=== PATIENT | female | born 1980 | race Caucasian/White ===

== ENCOUNTER → 2017-08-10 | Outpatient (CLI) | payer BC ==
[2017-08-10 17:01] LABS: Basophils # (A) 0.1 k/uL (0-0.2); Basophils % (A) 1 %; Eosinophils # (A) 0.3 k/uL (0-0.7); Eosinophils % (A) 4 %; HGB 13.4 gm/dL (11.4-16.0); Lymphocytes % (A) 37 %; MCH 32.5 pg (25.0-35.0); MCHC 32.8 g/dL (31.0-37.0); Mean Platelet Volume 7.2; Monocytes # (A) 0.3 k/uL (0-1.0); Monocytes % (A) 4 %; Neutrophils # (A) 4.2 k/uL (1.3-7.7); Neutrophils % (A) 53 %; Platelet Count 307 k/uL (150-450); RBC 4.14 m/uL (3.80-5.40); RDW 13.7 % (11.5-15.5)
== END | disposition home or self-care (01) ==
LOC: LABPAT 16:22
PROVIDERS: ATTEND Obstetrics & Gynecology Obstetrics
DX: Z01.810 Encounter for preprocedural cardiovascular examination (principal); I10 Essential (primary) hypertension; N92.0 Excessive and frequent menstruation with regular cycle; Z64.0 Problems related to unwanted pregnancy; Z01.812 Encounter for preprocedural laboratory examination
CPT/HCPCS: 36415; 85025; 93005

== ENCOUNTER 2017-08-29 08:56 | Day surgery (SDC) | payer BC ==
[2017-08-23 13:30] VITALS: BMI 28.2
--- NOTE | 2017-08-24 11:35 | P.HPOB ---
History of Present Illness H&P Date: 08/24/17 Chief Complaint: menorrhagia This is a 36yo female that presents with c/o heavy menstrual bleeding with clots. she notes menses to be regular q 24-28 days, lasting 5 days. she also notes sever dysmenorrhea in addition. she does desires EA and permanent sterilization at this time Review of Systems Constitutional: Denies chills, Denies fatigue, Denies fever Respiratory: Denies cough Gastrointestinal: Denies constipation, Denies diarrhea Genitourinary: Reports menorrhagia Menstruation: Reports period heavy Past Medical History Additional Past Medical History / Comment(s): heavy painful periods History of Any Multi-Drug Resistant Organisms: None Reported Past Surgical History: No Surgical Hx Reported Additional Past Anesthesia/Blood Transfusion Reaction / Comment(s): has never had anesthesia Smoking Status: Current every day smoker - Past Family History Father Family Medical History: Cancer Medications and Allergies Home Medications Medication Instructions Recorded Confirmed Type Acetaminophen Tab [Tylenol Tab] 325 mg PO Q4H 08/23/17 08/23/17 History Lisinopril [Zestril] 2.5 mg PO DAILY 08/23/17 08/23/17 History Motrin 200 mg PO Q6HR PRN 08/23/17 08/23/17 History Allergies Allergy/AdvReac Type Severity Reaction Status Date / Time No Known Allergies Allergy Verified 08/23/17 13:21 Exam Osteopathic Statement: *. No significant issues noted on an osteopathic structural exam other than those noted in the History and Physical/Consult. - OBG Physical Exam Vagina: normal appearence for age, no lesions noted Cervix: normal in appearence no lesions or masses Uterus: normal size Adnexa: both: normal Assessment and Plan (1) Menorrhagia Narrative/Plan: Plan H DC EA with LTL, falope rings. suregeyr is reviewed in the office and questions answered. risks are reviewed including but not limited to infection bleeding damage to bladder bowel or ureteric injury. she states understanding and wishes to proceed. Status: Acute Code(s): N92.0 - EXCESSIVE AND FREQUENT MENSTRUATION WITH REGULAR CYCLE SNOMED Code(s): 108067523 (2) Sterilization Status: Acute Code(s): Z30.2 - ENCOUNTER FOR STERILIZATION SNOMED Code(s): 652508840 Time with Patient: Less than 30
[~2017-08-29 08:56] MED LIST: DEXAMETHASONE SOD PHOSPHATE 10 MG/ML 1 ML VIAL IV ONE; HYDROmorphone 0.5 MG/0.5 ML SYRINGE IVP PRN; IBUPROFEN IV 800 MG in SODIUM CHLORIDE 0.9% 250 ML IV ONE; LIDOCAINE 2% GEL 5 ML TUBE TOPICAL ONE; MIDAZOLAM 2 MG/2 ML VIAL IV PRN; ONDANSETRON 4 MG/2 ML VIAL IVP ONE; Pre Op ABX Message 1 EACH MISC MISCELLANE ONE
[2017-08-29] MEDS: LACTATED RINGERS 1,000 ML IV SCH ×3 (09:40→13:40)
[2017-08-29] MEDS ORDERED: LIDOCAINE 1% 20 ML VIAL (10MG/ML) FOR IV START INTRADERMA ONE (09:40)
[2017-08-29] MEDS ORDERED: MIDAZOLAM 2 MG/2 ML VIAL ONE (10:23)
[2017-08-29] MEDS ORDERED: LIDOCAINE 1% INJ 10MG/ML (20 ML MDV) ONE (10:23)
[2017-08-29] MEDS ORDERED: PROPOFOL 10 MG/ML 20 ML VIAL IV ONE (10:23)
[2017-08-29] MEDS ORDERED: fentaNYL (PF) 50 MCG/ML 2 ML AMP ONE (10:23)
[2017-08-29] MEDS ORDERED: SUCCINYLCHOLINE CHLORIDE 100 MG/5 ML SYR IV ONE (10:23)
[2017-08-29] MEDS ORDERED: BUPIVACAINE (PF) 0.5% 30 ML VIAL SQ ONE ×2 (10:50)
[2017-08-29 11:31] VITALS: TEMP 98
--- NOTE | 2017-08-29 11:35 | P.OP ---
Date of Procedure: 08/29/17 Preoperative Diagnosis: Menorrhagia, family status complete Postoperative Diagnosis: Same Procedure(s) Performed: Laparoscopic tubal ligation with Falope-Rings, hysteroscopy, dilation and curettage, endometrial ablation with NovaSure Anesthesia: ADEBAYO Surgeon: Martha Herrera Estimated Blood Loss (ml): 10 IV fluids (ml): 300 Urine output (ml): 50 Pathology: none sent Condition: stable Disposition: PACU Indications for Procedure: Heavy menstrual bleeding, family status complete Operative Findings: Normal pelvic anatomy, proliferative endometrial cavity Description of Procedure: Patient was taken to the operating room after informed consent consent was obtained in the preoperative area. General Anesthesia was then obtained by the anesthesia Department without difficulty. She was then prepped and draped in the normal sterile fashion in the dorsal lithotomy position. A weighted speculum posterior vaginal vault, and the anterior lip the cervix was visualized grasped with a single-tooth tenaculum and acorn uterine manipulator was advanced into the cervix as a means to manipulate the uterus throughout the procedure. Prior to this a red rubber catheter was used to drain the bladder of clear yellow urine approximately 50 mL. Attention was then turned to the patient's abdomen where in the umbilical fold small skin incision was made through this incision the Veress needle was placed with a very stenosed seemed to be in the appropriate position with a drop of CO2 pressure with insufflation of CO2 gas CO2 insufflation was allowed to occur. At this point the 5 mm trocar and sleeve was placed through the skin incision and toward the pneumoperitoneum under direct visualization. The trocar was removed with the sleeve remaining in place and the above-noted findings were visualized. At this point and an additional port site was placed in the right lower quadrant this is an [address] under direct visualization. The fallopring applicator was then placed through the 8 mm port and the left fallopian tube was grasped and the ring was applied without difficulty. This was then repeated on the opposite side all insurance were then removed from the patient's abdomen and skin incisions were closed with 4-0 Vicryl in a subarticular fashion Steri-Strips and sterile dressings were applied. Next Attention was then turned to the patient's vaginal vault the acorn uterine manipulator was removed without difficulty and the cervix was then dilated to 18 -Divehi. Sharp curettage was performed after hysteroscopy revealed a normal proliferative endometrium. The curettings were then of sent to pathology for analysis. The NovaSure device was then opened in such a the patient's uterine measurements. 5, 4.4 with, 121 power for 1 minute 45 seconds. After the cycle was complete and the prior to this the cavity did pass the cavity assessment. The NovaSure was removed without difficulty. The single-tooth tenaculum was removed without difficulty hemostasis was appreciated and the weighted speculum was removed and the vaginal vault. Counts are correct 2 patient tolerated procedure well and was taken to the recovery room awake and stable condition
[2017-08-29] MEDS ORDERED: HYDROmorphone 0.5 MG/0.5 ML SYRINGE IVP ONE (12:16)
[2017-08-29 14:34] VITALS: BP 115/74; PULSE 64; RESP 16
== END 2017-08-29 13:50 | disposition home or self-care (01) ==
LOC: OR 08:56
PROVIDERS: ATTEND Obstetrics & Gynecology Obstetrics
DX: Z30.2 Encounter for sterilization (principal); N92.0 Excessive and frequent menstruation with regular cycle; N94.6 Dysmenorrhea, unspecified; I10 Essential (primary) hypertension; F17.210 Nicotine dependence, cigarettes, uncomplicated; Z79.899 Other long term (current) drug therapy
CPT/HCPCS: 81025; 88305; 58563; 58671; J2250; J1100; J2405; J2001; J3010; J0330; J1741; J2704; J1170

== ENCOUNTER → 2018-02-20 | Outpatient (CLI) | payer BC ==
--- NOTE | 2018-02-20 11:35 | US ---
EXAMINATION TYPE: US abdomen complete DATE OF EXAM: 02/20/2018 COMPARISON: NONE CLINICAL HISTORY: R10.11 Right upper Quadrant Pain. Pt states nausea, RUQ pain, diarrhea x 1 month EXAM MEASUREMENTS: Liver Length: 17.3 cm Gallbladder Wall: 0.3 cm CBD: 0.2 cm Spleen: 10.7 cm Right Kidney: 10.4 x 4.9 x 5.0 cm Left Kidney: 11.9 x 4.9 x 4.4 cm Pancreas: wnl, tail obscured by overlying bowel gas Liver: Upper limits of normal for size Gallbladder: wnl Evidence for sonographic Simon's sign: Yes CBD: wnl Spleen: wnl Right Kidney: wnl Left Kidney: wnl Upper IVC: wnl Abd Aorta: wnl No abnormality visualized to account for pt's symptoms The liver is homogenous. The intrahepatic portion of the IVC and proximal abdominal aorta are within normal limits. There is no evidence of cholelithiasis. Common bile duct is unremarkable. The visu alized portions of the pancreas are homogenous. The spleen is unremarkable. Kidneys are symmetric a nd free of hydronephrosis. No renal lesions are seen. IMPRESSION: Unremarkable study.
== END | disposition home or self-care (01) ==
LOC: RADUSWWP 10:33
PROVIDERS: ATTEND Family Medicine
DX: R10.11 Right upper quadrant pain (principal); R19.7 Diarrhea, unspecified; R11.0 Nausea; K21.0 Gastro-esophageal reflux disease with esophagitis
CPT/HCPCS: 76700

== ENCOUNTER → 2019-01-18 | Outpatient (CLI) | payer BC ==
--- NOTE | 2019-01-18 08:35 | MM ---
Reason for exam: screening (asymptomatic). Baseline mammogram. Physical Findings: Nurse did not find any significant physical abnormalities on exam. MG 3D Screening Mammo W/Cad Bilateral CC, MLO, and XCCL view(s) were taken. The breast tissue is heterogeneously dense. This may lower the sensitivity of mammography. There is no discrete abnormality. These results were verbally communicated with the patient and result sheet given to the patient on 01/18/19. ASSESSMENT: Negative, BI-RAD 1 RECOMMENDATION: Routine screening mammogram of both breasts in 1 year.
== END | disposition home or self-care (01) ==
LOC: RADMAMWWP 07:23
PROVIDERS: ATTEND Obstetrics & Gynecology Obstetrics
DX: Z12.31 Encounter for screening mammogram for malignant neoplasm of breast (principal)
CPT/HCPCS: 77063; 77067

== ENCOUNTER → 2022-04-25 | Outpatient (CLI) | payer BC | END | disposition home or self-care (01) | LOC: LABWHC1 07:59 | PROVIDERS: ATTEND Otolaryngology | DX: J30.89 Other allergic rhinitis (principal) | CPT/HCPCS: 36415 ==

== ENCOUNTER → 2022-04-28 | Outpatient (CLI) | payer BC ==
--- NOTE | 2022-04-28 09:19 | CT ---
EXAMINATION TYPE: CT sinus wo con CT DLP: 545.1 mGycm, Automated exposure control for dose reduction was used. DATE OF EXAM: 04/28/2022 8:05 AM COMPARISON: None. CLINICAL INDICATION:Female, 41 years old with history of J32.9 CHRONIC SINUSITIS; CONTRAST: None. TECHNIQUE: Multiple thin axial images were obtained through the paranasal sinuses without the use of IV contrast. Additional coronal and sagittal reformatted images were submitted for evaluation. FINDINGS: Frontal sinuses: Normally developed. Minimal mucosal thickening of the bilateral frontal sinuses. Fro ntal Recess: Clear Maxillary Sinuses: Normally developed. Moderate bilateral maxillary mucosal thickening with thin sept ations in the right maxillary sinus. Maxillary Infundibula([facility]): There is opacification of the bilateral maxillary infundibula with right greater than left., Ethmoid sinuses: Mild to moderate bilateral mucosal thickening. Ethmoidal notch: Protected on the rig ht with supraorbital pneumatization on the left. Sphenoid sinuses: Normal developed. Minimal mucosal thickening of the left maxillary sinus with moder ate mucosal thickening on the right. There is sellar sphenoid sinus pneumatization without evidence o f dehiscence. No dehiscence of carotid canal. No evidence of optic nerve dehiscence within the sphen oid sinus. No evidence of Onodi cells. Sphenoethmoidal recesses: Opacified. Nasal septum: Minimal septal nasal deviation to the left.. Nasal Turbinates: Within normal limits. . Mastoid air cells & middle ears: The air cells are clear. The middle ears are grossly unremarkable. Modified Soft tissues & Brain: Partially seen without gross abnormality. Globes are intact. Other: Cribriform plate demonstrates symmetric Keros classification type 3 cribriform plate on the left and type II on the right. No evidence of bony dehiscence of skull base. Lamina papyracea is intact without evidence of remote orbital fracture or orbital prolapse into the e thmoid sinus. Pneumatization of the claudio edil. IMPRESSION: 1. Moderate mucosal sinus disease. 2. The ostiomeatal units, frontonasal and sphenoethmoidal recesses are opacified.
== END | disposition home or self-care (01) ==
LOC: RADCTMAIN 07:51
PROVIDERS: ATTEND Otolaryngology
DX: J32.9 Chronic sinusitis, unspecified (principal)
CPT/HCPCS: 70486